=== PATIENT | female | born 1955 | race Caucasian/White ===

== ENCOUNTER → 2022-10-29 20:59 | Outpatient (CLI) | payer MEDICARE, SELFPAY ==
[2022-10-29 19:07] LABS: Basophils # 0.1 K/mm3 (0-0.2); Basophils % 0.8 % (0.1-2.0); Eosinophils % 0.5 % (0.1-12.0); Lymphocytes # 2.3 K/mm3 (0.7-4.5); Lymphocytes % 25.9 % (10-50); Mean Corpuscular HGB Conc 32.6 g/dL (31.8-35.4); Mean Corpuscular Hemoglobin 30.7 pg (27.0-31.2); Mean Corpuscular Volume 94.3 fl (81-99); Mean Platelet Volume 8.8 fl (7.4-10.4); Monocytes # 0.4 K/mm3 (0.1-1.0); Monocytes % 4.8 % (1.7-9.3); Neutrophils % 67.9 % (37.0-80.0); Platelet Count 303 K/mm3 (142-424); Red Blood Count 4.88 M/mm3 (4.20-5.40); Red Cell Distribution Width 13.2 % (11.5-17.5); White Blood Count 8.8 K/mm3 (4.8-10.8)
[2022-10-29 20:36] LABS: Alanine Aminotransferase 22 U/L (12-78); Albumin Level 4.4 g/dl (3.5-5.0); Albumin/Globulin Ratio 1.8 (1.1-1.8); Alkaline Phosphatase 83 U/L (38-126); Anion Gap 16.2 mEq/L (5-15); Aspartate Amino Transferase 28 U/L (14-36); Bilirubin,Total 0.5 mg/dl (0.2-1.3); Blood Urea Nitrogen 16 mg/dl (7-17); Calcium 9.5 mg/dl (8.4-10.2); Carbon Dioxide 26 mmol/L (22.0-30.0); Chloride 103 mmol/L (98-107); Chol/HDL Ratio 5.9 (1-3.5); Cholesterol 299 mg/dl (140-200); Estimated Glomerular Filt Rate 63 ml/min (>60); GFR (African American) 76 ML/MIN (>60); Globulin 2.4 g/dL (1.3-3.2); Glucose 81 mg/dl (74-100); HDL Cholesterol 51 mg/dl (40-60); Potassium 4.2 mmoL/L (3.5-5.1); Sodium 141 mmol/L (136-145); Total Protein,Serum 6.8 g/dl (6.3-8.2); Triglycerides 197 mg/dl (30-150); VLDL Cholesterol 39 mg/dL (0-40)
[2022-10-29 20:48] LABS: Direct LDL Cholesterol 190.72 mg/dL (100-129)
[2022-10-29 20:52] LABS: 25-OH Vitamin D, Total 24.9 ng/mL (30-100)
[2022-10-29 21:07] LABS: Thyroid Stimulating Hormone 3.05 uIU/mL (0.465-4.68)
[2022-10-29 21:27] LABS: Vitamin B12 330 pg/mL (239-931)
== END ==
PROVIDERS: PCP Family Medicine; Visit Provider Family Medicine
DX: I10 Essential (primary) hypertension (principal); R53.83 Other fatigue; E55.9 Vitamin D deficiency, unspecified; E53.9 Vitamin B deficiency, unspecified; M54.9 Dorsalgia, unspecified
CPT/HCPCS: 80053; 80061; 82306; 82607; 84443; 85025

== ENCOUNTER 2023-10-15 15:12 | Outpatient (CLI) | payer MEDICARE, OTHER, SELFPAY | END 2023-10-15 23:59 | disposition home or self-care (01) | LOC: LAB.DROPOF 10-18 15:13 | PROVIDERS: PCP Family Medicine; Visit Provider Family Medicine | DX: N39.0 Urinary tract infection, site not specified (principal); B96.29 Other Escherichia coli [E. coli] as the cause of diseases classified elsewhere | CPT/HCPCS: 87086; 87088; 87186 ==

== ENCOUNTER 2023-12-10 12:24 | Outpatient (CLI) | payer MEDICARE, OTHER, SELFPAY ==
[2023-12-10 18:29] LABS: Basophils # 0.1 K/mm3 (0-0.2); Basophils % 0.7 % (0.1-2.0); Eosinophils % 0.2 % (0.1-12.0); Hematocrit 38.3 % (37.0-47.0); Hemoglobin 14.7 g/dL (12.2-16.2); Lymphocytes # 1.4 K/mm3 (0.7-4.5); Mean Corpuscular HGB Conc 38.4 g/dL (31.8-35.4); Mean Corpuscular Hemoglobin 37.4 pg (27.0-31.2); Mean Corpuscular Volume 97.2 fl (81-99); Mean Platelet Volume 8.8 fl (7.4-10.4); Monocytes # 0.2 K/mm3 (0.1-1.0); Monocytes % 2.6 % (1.7-9.3); Neutrophils # 7.1 K/mm3 (1.8-7.8); Neutrophils % 80.6 % (37.0-80.0); Platelet Count 276 K/mm3 (142-424); Red Blood Count 3.94 M/mm3 (4.20-5.40); Red Cell Distribution Width 13.6 % (11.5-17.5); White Blood Count 8.8 K/mm3 (4.8-10.8)
[2023-12-10 19:09] LABS: Alanine Aminotransferase 21 U/L (12-78); Albumin Level 4.5 g/dl (3.5-5.0); Albumin/Globulin Ratio 1.7 (1.1-1.8); Alkaline Phosphatase 75 U/L (38-126); Anion Gap 8.8 mEq/L (5-15); Aspartate Amino Transferase 26 U/L (14-36); Bilirubin,Total 0.6 mg/dl (0.2-1.3); Blood Urea Nitrogen 20 mg/dl (7-17); Calcium 9.9 mg/dl (8.4-10.2); Carbon Dioxide 27 mmol/L (22.0-30.0); Chloride 106 mmol/L (98-107); Chol/HDL Ratio 5.2 (1-3.5); Cholesterol 300 mg/dl (140-200); Estimated Glomerular Filt Rate 62 ml/min (>60); GFR (African American) 76 ML/MIN (>60); Globulin 2.6 g/dL (1.3-3.2); Glucose 108 mg/dl (74-100); HDL Cholesterol 58 mg/dl (40-60); Potassium 4.8 mmoL/L (3.5-5.1); Sodium 137 mmol/L (136-145); Total Protein,Serum 7.1 g/dl (6.3-8.2); Triglycerides 186 mg/dl (30-150); VLDL Cholesterol 37 mg/dL (0-40)
[2023-12-10 19:20] LABS: Direct LDL Cholesterol 192.32 mg/dL (100-129); Intact Parathyroid Hormone 130.1 pg/mL (7.5-53.5)
[2023-12-10 19:39] LABS: Thyroid Stimulating Hormone 1.59 uIU/mL (0.465-4.68)
== END 2023-12-10 23:59 | disposition home or self-care (01) ==
LOC: LAB.DROPOF 12-13 12:25
PROVIDERS: PCP Family Medicine; Visit Provider Family Medicine
DX: I10 Essential (primary) hypertension (principal); Z87.891 Personal history of nicotine dependence
CPT/HCPCS: 80053; 80061; 83970; 84443; 85025

== ENCOUNTER 2025-01-10 10:40 | Outpatient (CLI) | payer MEDICARE, OTHER, SELFPAY ==
[2025-01-10 18:53] LABS: Alanine Aminotransferase 25 U/L (12-78); Albumin Level 4.5 g/dl (3.5-5.0); Albumin/Globulin Ratio 2.0 (1.1-1.8); Alkaline Phosphatase 78 U/L (38-126); Anion Gap 10.6 mEq/L (5-15); Aspartate Amino Transferase 30 U/L (14-36); Bilirubin,Total 0.6 mg/dl (0.2-1.3); Blood Urea Nitrogen 14 mg/dl (7-17); Calcium 9.9 mg/dl (8.4-10.2); Carbon Dioxide 28 mmol/L (22.0-30.0); Chloride 103 mmol/L (98-107); Cholesterol 297 mg/dl (140-200); Creatinine,Serum 1.00 mg/dl (0.52-1.04); Estimated Glomerular Filt Rate 55 ml/min (>60); GFR (African American) 67 ML/MIN (>60); Globulin 2.3 g/dL (1.3-3.2); Glucose 97 mg/dl (74-100); HDL Cholesterol 54 mg/dl (40-60); Potassium 4.6 mmoL/L (3.5-5.1); Sodium 137 mmol/L (136-145); Total Protein,Serum 6.8 g/dl (6.3-8.2); Triglycerides 200 mg/dl (30-150)
== END 2025-01-10 23:59 | disposition home or self-care (01) ==
LOC: LAB.DROPOF 01-12 10:41
PROVIDERS: PCP Family Medicine; Visit Provider Family Medicine
DX: I10 Essential (primary) hypertension (principal); R79.89 Other specified abnormal findings of blood chemistry
CPT/HCPCS: 80053; 80061; 83970

== ENCOUNTER 2025-02-15 12:13 | Outpatient (CLI) | payer MEDICARE, OTHER, SELFPAY ==
--- OUTSIDE RECORDS SUMMARY | 2025-02-15 12:17 | XMS_ITS | Encounter Summary ---
Author Organization Healthcare Address [address] [place] [address] Care Team Providers Care Program Professional Name Role Phone Rios Kelly MD Primary Care Provider [phone] Encounter Details Date Type Department Care Team ([facility] st Contact Info) Description 10/04/2023 Orders Only External Location [address] [place] [address] Provider, External Social History Tobacco Use Types Packs/Day Years Used Date Smoking Tobacco: Never Assessed Comments Unknown Sex and Gender Information Value Date Recorded Sex Assigned at Not on file Legal Sex Female 2:12 PM EDT Gender Identity Not on file Sexual Orientation Not on file documented as of this encounter Plan of Treatment Not on file documented as of this encounter Procedures Procedure Name Priority Date/Time Associated Diagnosis Comments CT NEURO OUTSIDE IMAGES 10/04/2023 11:17 AM EDT documented in this encounter Results * CT NEURO OUTSIDE IMAGES (10/04/2023 11:17 AM EDT) Anatomical Region Laterality Modality Computed Tomogra phy 10/04/2023 11:1 7 AM EDT us External Provider IMG CT PROCEDURES Final Result documented in this encounter Visit Diagnoses Not on filedocumented in this encounter Care Teams Program Professional Relationship Specialty Start Date End Date Rios Kelly MD [address] [place] [address] PCP - General 12/21/23 documented as of this encounter
--- OUTSIDE RECORDS SUMMARY | 2025-02-15 12:17 | XMS_ITS | Clinical Summary ---
Author Organization [facility] Address [address] [facility] [place] [address] Phone Care Team Providers Care Crew Car Driver Name Role Phone Radha Urbina MD Primary Care Provider [phone] Kenneth Rutherford MD Unavailable Allergies Active Allergy Reactions Criticality Noted Date Comments Nitroglycerin Anaphylaxis,Other (S ee Comments) High 12/20/2022 Pt reports last time he BP dropped and went out. Nitroglyn Other (See Comments) 12/20/2022 Pt reports last time he BP dropped and went out. Medications * This document contains information received from the source organization and may not represent a complete record from that organization. albuterol (PROVENTIL HFA;VENTOLIN HFA) 90 mcg/actuation Inhl HFA Aerosol Inhaler Inhale 2 Puffs into the lungs every 6 hours as needed for Wheezing. Active nebivoloL (BYSTOLIC) 10 mg Oral Tablet TAKE ONE (1) TABLET BY MOUTH DAILY 11/30/2022 Active BREO ELLIPTA 200-25 mcg/dose Inhl Disk with Device Inhale 1 Puff into the lungs daily. 01/19/2024 Active amLODIPine-hanh zepril (LOTREL) 10-40 mg Oral Capsule Take 1 Capsule by mouth daily. 02/01/2024 Active famotidine (PEPCID) 40 mg Oral Tablet Take 40 mg by mouth 2 times daily. 02/01/2024 Active tiZANidine (ZANAFLEX) 4 mg Oral Tablet Take 4 mg by mouth as needed for Muscle spasms. 08/23/2023 Active Active Problems Problem Noted Date Diagnosed Date Primary hypertension 02/09/2024 Mixed hyperlipidemia 02/09/2024 Pericardial effusion 02/09/2024 Tobacco use 02/09/2024 Vaginal vault prolapse after hysterectomy 2021 Mixed incontinence 08/21/2021 Resolved Problems Problem Noted Date Diagnosed Date Resolved Date ASHD (arteriosclerotic heart disease) 02/09/2024 02/09/2024 Surgical History Surgery Date Site/Laterality Comments HYSTERECTOMY 1995 SINUS SURGERY 1999 Medical History Medical History Date Comments GERD (gastroesophageal reflux disease) 3 Mixed incontinence 08/21/2021 Primary hypertension 02/09/2024 Social History Tobacco Use Types Packs/Day Years Used Date Smoking Tobacco: Former Cigarettes 1.5 50.7 S tarted: 1974 Smokeless Tobacco: Never Tobacco Cessation:Counseling Given: Not Answered Alcohol Use Standard Drinks/Week Comments No 0 (1 standard drink = 0.6 oz pur e alcohol) Sexually Active Control Partners Comments Yes Male Comments No Sex and Gender Information Value Date Recorded Sex Assigned at Not on file Legal Sex Female 6:56 AM EDT Gender Identity Not on file Sexual Orientation Not on file Obstetrics History Para Term AB IAB SAB Ectopic Multiple Livin g Live Births 3 3 0 3 3 Date Outcome GA Total Labor Labor/2nd/3rd Weight Sex Type Anes PTL Irena A1 A5 Name Clin 1972 Para F Vag-S pont Other Living 1973 Para M Vag-S pont Other Living 1974 Para M Vag-S pont None Living Last Filed Vital Signs Vital Sign Reading Time Taken Comments Blood Pressure 126/72 02/09/2024 1:58 PM EDT Pulse 53 02/09/2024 1:58 PM EDT Temperature 36.6 C (97.8 F) 09/30/2023 1:06 PM EDT Respiratory Rate 19 12/20/2022 6:30 PM EDT Oxygen Saturation 97% 02/09/2024 1:58 PM EDT Inhaled Oxygen Concentration - - Weight 90.3 kg (199 lb) 02/09/2024 1:58 PM EDT Height 164.5 cm (5' 4.75 ) 02/09/2024 1:58 PM ED T Body Mass Index 33.37 02/09/2024 1:58 PM EDT Plan of Treatment Health Maintenance Due Date Last Done Comments Wellness Exam Medicare 02/12/1958 Hepatitis C Screening 02/12/1974 DTaP/TDaP/Td (1 - Tdap) 02/12/1975 Colonoscopy 02/12/2001 FIT 02/12/2001 Sigmoidoscopy 02/12/2001 Virtual Colonography 02/12/2001 Pneumococcal Vaccine 50+ (1 of 1 - PCV) 02/12/2006 Zoster (1 of 2) 02/12/2006 Bone Density Screening 02/12/2021 Breast Cancer Screening 03/15/2022 03/15/20 20, 03/15/2020, 08/18/2011, Additional history exists Cologuard 09/25/2024 09/25/2021, 09/25/2021 Colon Cancer Screening 09/25/2024 COVID-19 Vaccine ( season) 2025 Influenza Vaccine (#1) 2025 Low Dose Lung Cancer Screening 09/01/2025 09/01/2024, 10/18/2013 Hepatitis B Vaccine Aged Out No longe r eligible based on patient's age to complete this topic Meningococcal B Vaccine Aged Out No l onger eligible based on patient's age to complete this topic Procedures Procedure Name Priority Date/Time Associated Diagnosis Comments CT LUNG CANCER SCREENING LOW DOSE Routine 09/01/2024 11:35 AM EDT Primary hypertension Mixed hyperlipidemia Pericardial effusion Tobacco use Personal history of nicotine dependence COLOGUARD Routine 09/25/2021 8:30 AM EDT Special screening for malignant neoplasms, colon Screening for malignant neoplasm of the rectum MM MAMMO DIGITAL ANNE SCREEN BILAT Routine 03/15/2020 11:09 AM EDT Encounter for screening mammogram for malignant neoplasm of breast from Last 3 Months or Most Recently Relevant to Health Maintenance Results * CT LUNG CANCER SCREENING LOW DOSE (09/01/2024 11:35 AM EDT) Anatomical Region Laterality Modality Lung Computed Tomogra phy 09/01/2024 11:3 5 AM EDT Impressions 09/01/2024 11:47 AM EDT Unremarkable low-dose screening chest CT. RECOMMENDATION: Low Dose CT - 1 Yr A summary letter communicating these results will be mailed to the patient's address of record. - Note: Radiology results need to be interpreted within a comprehensive clinical context. If you have questions about the radiology report, please contact the office of the ordering clinician. [email or web address] Narrative 09/01/2024 11:[address] LUNG CANCER SCREENING LOW DOSE 09/01/2024 11:35 AM CLINICAL HISTORY: Asymptomatic patient meeting NCCN high risk criteria for lung screening. X51-Ycqmhugac (primary) dlwizjfgdket-NKB-32-CM E78.2-Mixed mdiuekatlvablr-EBO-93-CM I31.39-Other pericardial effusion (noninflammatory)-ICD-10-CM Z72.0-Tobacco bcp-OWT-21-CM Z87.891-Personal history of nicotine ajvvvrfrdr-BPZ-84-CM. COMPARISON: None. PROCEDURE COMMENTS: Noncontrast, low-dose, multidetector CT chest per department protocol. Interactive 3-D postprocessing done by the reviewing physician on a [employer] workstation, using Maximum intensity projections (MIPS) and [employer] LUNG CAD for improved lesion detection. [place] images archived to PACS. Dose 1 : CT DLP Total : 53.98 mGycm DLP Spiral Max : 50.99 mGycm Maximum CTDI Vol : 1.35 mGy FINDINGS: No suspicious pulmonary nodule. No acute inflammatory process. Heart and mediastinum unremarkable. Coronary artery calcification: Mild. FOLLOW-UP CODE: Lung-RADS Category 1: Negative: No nodule or definitely benign nodule(s). Continued ANNUAL LOW-DOSE SCREENING CT SCAN (IMG [id number]) suggested if age <78. Lung-RADS Modifier N/A: No Modifier Needed Procedure Note Vane Garcia MD - 09/01/2024 CT LUNG CANCER SCREENING LOW DOSE 09/01/2024 11:35 AM CLINICAL HISTORY: Asymptomatic patient meeting NCCN high risk criteria forlung screening. A00-Mdskgswmg (primary) nnqsaqaodtsl-FBI-24-CM E78.2-Mixed wimsotfshngakd-GAI-30-CM I31.39-Other pericardial effusion (noninflammatory)-ICD-10-CM Z72.0-Tobacco kzn-FWJ-71-CM Z87.891-Personal history of nicotine yoxmyntjtj-GMA-02-CM. COMPARISON: None. PROCEDURE COMMENTS: Noncontrast, low-dose, multidetector CT chest perdepartment protocol. Interactive 3-D postprocessing done by the reviewing physicianon a [employer] workstation, using Maximum intensity projections (MIPS) and [employer]UNG CAD for improved lesion detection. [place] images archived to PACS. Dose 1 : CT DLP Total : 53.98 mGycm DLP Spiral Max : 50.99 mGycm Maximum CTDI Vol : 1.35 mGy FINDINGS: No suspicious pulmonary nodule. No acute inflammatory process. Heart and mediastinum unremarkable. Coronary artery calcification: Mild. FOLLOW-UP CODE: Lung-RADS Category 1: Negative: No nodule or definitelybenign nodule(s). Continued ANNUAL LOW-DOSE SCREENING CT SCAN ([facility] [id number])suggested if age <78. Lung-RADS Modifier N/A: No Modifier Needed IMPRESSION: Unremarkable low-dose screening chest CT. RECOMMENDATION: Low Dose CT - 1 Yr A summary letter communicating these results will be mailed to thepatient's address of record. - Note: Radiology results need to be interpreted within a comprehensiveclinical context. If you have questions about the radiology report, please contactthe office of the ordering clinician. [email or web address] August Lacey INJECTION MOLDING PROCESS TECHNICIAN G CT ORDERABLES Final Res ult * COLOGUARD (09/25/2021 8:30 AM EDT) COLOGUARD CLINICAL REPORT Negative Negative [facility] Comment: NEGATIVE TEST RESULT. A negative Cologuard result indicates a low likelihood that a colorectal cancer (CRC) or advanced adenoma (adenomatous polyps with more advanced pre-malignant features) is present. The chance that a person with a negative Cologuard test has a colorectal cancer is less than 1 in 1500 (negative predictive value >99.9%) or has an advanced adenoma is less than 5.3% (negative predictive value 94.7%). These data are based on a prospective cross-sectional study of 10,000 individuals at average risk for colorectal cancer who were screened with both Cologuard and colonoscopy. (Oren Huntley al, N Engl J Med 2014;370(14):4478-6178) The normal value (reference range) for this assay is negative. COLOGUARD RE-SCREENING RECOMMENDATION: Periodic colorectal cancer screening is an important part of preventive healthcare for asymptomatic individuals at average risk for colorectal cancer. Following a negative Cologuard result, the [place] [employer] and U.S. Multi-Society Task Force screening guidelines recommend a Cologuard re-screening interval of 3 years. References: [place] [employer] Guideline for Colorectal Cancer Screening: https://www.cancer.org/cancer/lntlg-ldtfnv-frqyug/zlnjmhyhh-lonylneyd-qrrqldq/ac s-rec ommendations.html.; Manuel DK, Hakeem ALDRIDGE, Elder MehtaK, Colorectal Cancer Screening: Recommendations for Physicians and Patients from the U.S. Multi-Society Task Force on Colorectal Cancer Screening , Am J Gastroenterology 2017; 112:9654-3348. TEST DESCRIPTION: Composite algorithmic analysis of stool DNA-biomarkers with hemoglobin immunoassay. Quantitative values of individual biomarkers are not reportable and are not associated with individual biomarker result reference ranges. Cologuard is intended for colorectal cancer screening of adults of either sex, 45 years or older, who are at average-risk for colorectal cancer (CRC). Cologuard has been approved for use by the U.S. FDA. The performance of Cologuard was established in a cross sectional study of average-risk adults aged 50-84. Cologuard performance in patients ages 45 to 49 years was estimated by sub-group analysis of near-age groups. Colonoscopies performed for a positive result may find as the most clinically significant lesion: colorectal cancer [4.0%], advanced adenoma (including sessile serrated polyps greater than or equal to 1cm diameter) [20%] or non- advanced adenoma [31%]; or no colorectal neoplasia [45%]. These estimates are derived from a prospective cross-sectional screening study of 10,000 individuals at average risk for colorectal cancer who were screened with both Cologuard and colonoscopy. (Oren Huntley al, N Engl J Med 2014;370(14):0521-1352.) Cologuard may produce a false negative or false positive result (no colorectal cancer or precancerous polyp present at colonoscopy follow up). A negative Cologuard test result does not guarantee the absence of CRC or advanced adenoma (pre-cancer). The current Cologuard screening interval is every 3 years. ([place] [employer] and U.S. Multi-Society Task Force). Cologuard performance data in a 10,000 patient pivotal study using colonoscopy as the reference method can be accessed at the following location: www.[employer]/results. Additional description of the Cologuard test process, warnings and precautions can be found at www.cologuard.com. Stool 09/25/2021 8:30 AM EDT 09/27/2021 7:24 PM EDT Elodia Davies MD [employer] - [facility] Final [facility], [employer] [address] [place] [address], [facility] [employer] [address] [place] [address] * MM MAMMO DIGITAL ANNE SCREEN BILAT (03/15/2020 11:09 AM EDT) Anatomical Region Laterality Modality Breast Bilateral Mammography 03/18/2020 9:21 AM EDT Impressions 03/18/2020 9:21 AM EDT Negative (KBQ-Uyfxqtpd-3) ~ RECOMMENDATION: Routine screening mammogram in 1 year. ~ DISCLAIMER * Any patient with a palpable abnormality, unexplained by breast imaging, should be managed on clinical basis by the attending physician. * Breast imaging has a false negative rate of 15%. * The patient was notified by mail of the results of this examination. *The patient's information was entered into a reminder system with a target due date for the next mammogram, in accordance with the [place] [employer] and the Society of Breast Imaging recommendations. Narrative 03/18/2020 9:21 AM EDT Procedure:MM MAMMO DIGITAL ANNE SCREEN BILAT ~ Reason for exam: screening, asymptomatic. Z12.31-Encounter for screening mammogram for malignant neoplasm of xmkmqk-MCR-32-CM ~ MM MAMMO DIGITAL ANNE SCREEN BILAT Bilateral CC and MLO view(s) were taken. There are scattered fibroglandular densities. Prior study comparison: Compared with prior studies the most recent being 08/18/11, 07/19/07 No mammographic evidence of malignancy. ~ Procedure Note Alina Camarillo MD - 03/18/2020 Procedure:MM MAMMO DIGITAL ANNE SCREEN BILAT ~ Reason for exam: screening, asymptomatic. Z12.31-Encounter for screening mammogram for malignant neoplasm of sawaih-XSC-71-CM ~ MM MAMMO DIGITAL ANNE SCREEN BILAT Bilateral CC and MLO view(s) were taken. There are scattered fibroglandular densities. Prior study comparison: Compared with prior studies the most recentbeing 08/18/11, 07/19/07 No mammographic evidence of malignancy. ~ IMPRESSION: Negative (GTG-Rbolyhmr-7) ~ RECOMMENDATION: Routine screening mammogram in 1 year. ~ DISCLAIMER * Any patient with a palpable abnormality, unexplained by breast imaging, should be managed on clinical basis by the attending physician. * Breast imaging has a false negative rate of 15%. * The patient was notified by mail of the results of this examination. *The patient's information was entered into a reminder system with atarget due date for the next mammogram, in accordance with the [place] [employer] and the Society of Breast Imaging recommendations. Rebecca Lowe NP [facility] MAMMOGRAPHY ORDERABLES Lyudmila l Result from Last 3 Months or Most Recently Relevant to Health Maintenance Insurance [place]ICARE [place] PART A AND B [employer] [place] PART [place] [employer] MEDICARE [place] PART A AND B [employer] Care Teams Crew Car Driver Relationship Specialty Start Date End Date Radha Urbina MD [address] [place] [address] PCP - General Family Medicine 07/31/11 Kenneth Rutherford MD [address] [place] [phone] Otolaryngology 09/22/23
--- OUTSIDE RECORDS SUMMARY | 2025-02-15 12:17 | XMS_ITS | Clinical Summary ---
Author Organization Healthcare Address [address] [place] [address] Care Team Providers Care Utility Sales Representative Name Role Phone Rios Kelly MD Primary Care Provider [phone] Allergies Active Allergy Reactions Criticality Noted Date Comments Nitroglycerin Anaphylaxis,Other - please document in the comment field High 12/20/2022 Pt reports last time he BP dropped and went out. Medications acetaminophen (Tylenol) 500 MG tablet Take 2 tablets (1,000 mg) by mouth every 8 (eight) hours. 4 Active albuterol 108 (90 Base) MCG/ACT inhaler TWO (2) PUFF INHALED EVERY 4-6 HOURS NEEDED FOR SHORTNESS OF BREATH OR WHEEZING Active amLODIPine-hanh zepril (Lotrel) 10-40 MG capsule TAKE 1 CAPSULE BY MOUTH EVERY DAY IN PLACE OF [place] 4 Active tiZANidine (Zanaflex) 4 MG tablet TAKE 1 TABLET BY MOUTH THREE (3) TIMES DAILY Active famotidine (Pepcid) 40 MG tablet Take 1 tablet (40 mg) by mouth 2 (two) times a day. 4 Active Social History Tobacco Use Types Packs/Day Years Used Date Smoking Tobacco: Never Smokeless Tobacco: Never Alcohol Use Standard Drinks/Week Comments Never 0 (1 standard drink = 0.6 oz pur e alcohol) Comments Unknown Sex and Gender Information Value Date Recorded Sex Assigned at Not on file Legal Sex Female 2:12 PM EDT Gender Identity Not on file Sexual Orientation Not on file Last Filed Vital Signs Vital Sign Reading Time Taken Comments Blood Pressure 114/64 02/07/2024 10:41 AM EDT Pulse 65 02/07/2024 10:41 AM EDT Temperature - - Respiratory Rate - - Oxygen Saturation - - Inhaled Oxygen Concentration - - Weight 88.9 kg (196 lb) 02/07/2024 10:41 AM EDT Height 167.6 cm (5' 6 ) 02/07/2024 10:41 AM EDT Body Mass Index 31.64 02/07/2024 10:41 AM EDT Plan of Treatment Health Maintenance Due Date Last Done Comments [facility]-Bone Density Scan 1955 [facility]-Depression Screening 1955 [facility]-Hepatitis C Screening 1955 [facility]-Medicare Annual Wellness (AWV) 1955 [facility]-/Child/Adol SDOH Screenings 1955 [facility]- SDOH Screenings 02/12/1974 [facility]-Adult SDOH Screenings 02/12/1974 [facility]-DTaP,Tdap,and Td Vaccine s (1 - Tdap) 02/12/1975 CT Colonography 02/12/2001 Colonoscopy 02/12/2001 FIT-DNA 02/12/2001 FIT 02/12/2001 FOBT 02/12/2001 Sigmoidoscopy 02/12/2001 [facility]-Colorectal Cancer Screening 02/12/2001 [facility]-Pneumococcal Vaccine: 50 + Years (1 of 1 - PCV) 02/12/2006 [facility]-Zoster Vaccines (1 of 2) 02/12/2006 [facility]-Breast Cancer Screening 03/15/202202/28, 03/15/2020, 08/18/2011 HUJ-XLULC-13 Vaccine ( season) 2025 [facility]-Influenza Vaccine (#1) 2025 [facility]-RSV Vaccine: 60+ Years o r (1 - 1-dose 75+ series) 02/12/2031 [facility]-Obesity Intervention Completed 02/07/2024 HPV Vaccines Aged Out No longer eligi ble based on patient's age to complete this topic [facility]-HIB Vaccines Aged Out No longer e ligible based on patient's age to complete this topic [facility]-Hepatitis A Vaccines Aged Out No longer eligible based on patient's age to complete this topic [facility]-IPV Vaccines Aged Out No longer e ligible based on patient's age to complete this topic [facility]-Rotavirus Vaccines Aged Out No lo nger eligible based on patient's age to complete this topic Insurance MEDICARE [facility] [facility] Care Teams Utility Sales Representative Relationship Specialty Start Date End Date Rios Kelly MD [facility] [place] [address] PCP - General 12/21/23
--- OUTSIDE RECORDS SUMMARY | 2025-02-15 12:17 | XMS_ITS | Encounter Summary ---
Author Organization [facility] Address [address] [place] [id number] Care Team Providers Care Senior Electrical Estimator Name Role Phone Rios Kelly MD Primary Care Provider [phone] Reason for Referral * Consultation (Routine) - Closed Specialty Diagnoses / Procedures Referred By Contac t Referred To Contact Otolaryngology Diagnoses Hyperparathyroidism, unspecified (CMS/HCC) Rios Kelly MD [address] [place] [address] Phone: tel: fax: Referral ID Status Reason Start Date Expiration Date V isits Requested Visits Authorized [id number] Closed Specialty Services Required 12/20/2023 06/20/2025 1 1 Encounter Details Date Type Department Care Team (Late st Contact Info) Description 12/20/2023 Community [facility] [address] [place] [address] Rios Kelly MD [address] [place] [address] Hyperparathyroidism, unspecified (CMS/HCC) (Primary Dx) Social History Tobacco Use Types Packs/Day Years Used Date Smoking Tobacco: Never Assessed Comments Unknown Sex and Gender Information Value Date Recorded Sex Assigned at Not on file Legal Sex Female 2:12 PM EDT Gender Identity Not on file Sexual Orientation Not on file documented as of this encounter Plan of Treatment Scheduled Referrals Name Type Priority Associated Diagnoses Orde r Schedule Ambulatory Referral to ENT Outpatient Referral Routine Hyperparathyroidism, unspecified (CMS/HCC) Expected: 12/20/2023 (Approximate), Expires: 06/21/2025 documented as of this encounter Visit Diagnoses Diagnosis Hyperparathyroidism, unspecified (CMS/HCC)- Primary Hyperparathyroidism, unspecified documented in this encounter Care Teams Senior Electrical Estimator Relationship Specialty Start Date End Date Rios Kelly MD [address] [place] [address] PCP - General 12/21/23 documented as of this encounter
--- OUTSIDE RECORDS SUMMARY | 2025-02-15 12:17 | XMS_ITS | Clinical Summary ---
Author Organization [facility] Address [facility] [place] [address] Care Team Providers Care [employer] Name Role Phone Kenneth Rutherford MD Unavailable Rios Kelly MD Primary Care Provider [phone] Source Comments This information has been disclosed to you from confidential records protectedfrom disclosure by state law. You shall make no further disclosure of thisinformation without the specific, written, and informed release of theindividual to whom it pertains, or as otherwise permitted by law. A generalauthorization for the release of medical or other information is not sufficientfor the purposes of therelease of HIV test results or diagnoses. [id number] Health Allergies Active Allergy Reactions Criticality Noted Date Comments Nitroglycerin Anaphylaxis,Other (S ee Comments) High 12/20/2022 Pt reports last time he BP dropped and went out. Medications PRALUENT PEN 75 mg/mL Inject subcutaneously. Every two weeks 3 Active DEXILANT 60 mg capsule Take 1 capsule every day by oral route for 56 days. Active escitalopram oxalate (LEXAPRO) 5 MG tablet Take 1 tablet (5 mg total) by mouth daily. 4 Active furosemide (LASIX) 40 MG tablet As needed for excess fluid in ears or ankle. 3 Active nebivoloL (BYSTOLIC) 10 MG tablet TAKE ONE (1) TABLET BY MOUTH DAILY 3 Active tiZANidine (ZANAFLEX) 4 MG tablet TAKE 1 TABLET BY MOUTH THREE (3) TIMES DAILY 4 Active PROAIR HFA 90 mcg/actuation inhaler INHALE TWO (2) PUFF(S) EVERY FOUR (4) HOURS BY INHALATION ROUTE. Active ergocalciferol (ERGOCALCIFEROL ) 1,250 mcg (50,000 unit) capsule TAKE ONE (1) CAPSULE BY MOUTH ONCE A WEEK. 4 Active NON FORMULARY Amlodipine/Besy latebenzipril -10-40mg. Started on 10/15/23. One time a day- had not gotten filled yet. Active acetaminophen (TYLENOL) 500 MG tablet Take 2 tablets (1,000 mg total) by mouth every 8 hours. 60 tablet 4 Active Active Problems No known active problems Social History Tobacco Use Types Packs/Day Years Used Date Smoking Tobacco: Former Cigarettes Q uit: 2016 Smokeless Tobacco: Never Alcohol Use Standard Drinks/Week Comments Not Currently 0 (1 standard drink = 0.6 oz pur e alcohol) PHQ-2 Answer Date Recorded PHQ-2 Total Score 0 10/13/2023 Yearly Questionnaire Answer Date Record ed Do you need any assistance w ith obtaining housing, meals, medication, transportation or medical equipment? No 10/12 Assistance needed for: Not on file 4 Yearly Questionnaire Answer Date Record ed Do you need any assistance w ith obtaining housing, meals, medication, transportation or medical equipment? No 10/12 Assistance needed for: Not on file 4 Yearly Questionnaire Answer Date Record ed Do you need any assistance w ith obtaining housing, meals, medication, transportation or medical equipment? No 10/12 Assistance needed for: Not on file 4 Comments Unknown Sex and Gender Information Value Date Recorded Sex Assigned at Female 11/15/2023 8:29 PM EDT Legal Sex Female 2:48 PM EDT Gender Identity Female 11/15/2023 8:29 PM EDT Sexual Orientation Straight 11/15/2023 8: 29 PM EDT Last Filed Vital Signs Vital Sign Reading Time Taken Comments Blood Pressure 137/76 11/24/2023 12:49 PM EDT Pulse 58 11/24/2023 12:49 PM EDT Temperature 36.3 C (97.4 F) 11/24/2023 12:49 PM EDT Respiratory Rate 16 11/24/2023 12:49 PM EDT Oxygen Saturation 95% 11/24/2023 12:49 PM EDT Inhaled Oxygen Concentration 95% 11/24/2023 1 2:49 PM EDT Weight 92.1 kg (203 lb) 11/24/2023 12:49 PM EDT Height 167.6 cm (5' 6 ) 11/24/2023 12:49 PM EDT Body Mass Index 32.77 11/24/2023 12:49 PM EDT Plan of Treatment Health Maintenance Due Date Last Done Comments Abnormal Colonoscopy Follow Up 1955 Diabetes Screening 1955 Hepatitis C Screening (MyChart) 1955 Alcohol Misuse Screening 02/12/1974 Immunization: DTaP/Tdap/Td (1 - Tdap) 02/12/1975 Mammogram (MyChart) 1996 Cologuard (FIT-DNA) 02/12/2001 Colonoscopy 02/12/2001 Colorectal Cancer Screening (MyChart) 02/12/2001 Stool Testing (gFOBT) 02/12/2001 Immunization: Pneumococcal (1 of 1 - PCV) 02/12/2006 Immunization: Zoster (1 of 2) 02/12/2006 Lung Cancer Screening 02/12/2006 Osteoporosis Screening (DXA Scan) 02/12/2006 Depression Screening 10/12/2024 10/13/2023 Immunization: COVID-19 ( season) 2025 Immunization: Influenza (MyChart) (#1) 2025 Immunization: RSV (Adult) (1 - 1-dose 75+ series) 01/29 Insurance MEDICARE A AND B [employer] Care Teams [employer] Inspector Relationship Specialty Start Date End Date Rios Kelly MD [address] [place] [address] [place], [place] [id number] PCP - General Family Medicine 11/10/23 Kenneth Rutherford MD [address] [place] [address] Dr. Gambino [address] [place] [id number] Referring Provider Otolaryngology 10/12/23
[2025-02-15 12:38] LABS: Blood Urea Nitrogen 16 mg/dl (7-17); Creatinine,Serum 1.00 mg/dl (0.52-1.04); Estimated Glomerular Filt Rate 55 ml/min (>60); GFR (African American) 67 ML/MIN (>60)
--- NOTE | 2025-02-15 13:00 | CT_ITS ---
FINAL REPORT TECHNIQUE: Thin section axial CT with coronal reconstruction without IV contrast This study was performed with techniques to keep radiation doses as low as reasonably achievable, (ALARA). Individualized dose reduction techniques using automated exposure control or adjustment of mA and/or kV according to the patient''s size were employed. CLINICAL HISTORY: NECK PAIN, SINUS PRESSURE COMPARISON: None FINDINGS: CT SINUS: There is a small air-fluid level in the right sphenoid sinus consistent with sinusitis. There are postoperative changes of the bilateral maxillary sinuses and ethmoid air cells. The patient is post partial turbinectomies. 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 The defect measures up to 12 mm in size. IMPRESSION: 1. Right sphenoid sinusitis. 2. Postoperative changes as described. 3. Bony defect/dehiscence, with the left alveolar ridge communicating with the left maxillary sinus. Reviewed, Interpreted and Dictated by Tashi Chavez MD Transcribed by Vickie North Authenticated and . [facility]
--- NOTE | 2025-02-15 13:30 | CT_ITS ---
FINAL REPORT CLINICAL HISTORY: NECK PAIN, SINUS PRESSURE COMPARISON: None FINDINGS: CT NECK WITH CONTRAST TECHNIQUE: Axial CT with IV contrast administration. This study was performed with techniques to keep radiation doses as low as reasonably achievable, (ALARA). Individualized dose reduction techniques using automated exposure control or adjustment of mA and/or kV according to the patient's size were employed. FINDINGS: The salivary glands are normal in appearance. No cervical adenopathy is identified. There is mild effacement of the left piriform sinus without an obvious mass, which could represent secretions. The vocal cords are symmetric. The thyroid gland is unremarkable. There is mild diffuse degenerative changes of the cervical spine identified seen on limited views. There is no abscess. IMPRESSION: 1. No mass or inflammatory change. This study was performed using automated techniques to achieve radiation exposure as low as reasonably achievable Reviewed, Interpreted and Dictated by Tashi Chavez MD Transcribed by Vickie North Authenticated and [facility]
[2025-02-15] MEDS: SODIUM CHLORIDE 0.9% 10ML SYR (RAD ONLY) 10 ML IV (13:39)
[2025-02-15] MEDS: IOPAMIDOL-370 (76%);100ML BOTTLE 75 ML IV (13:39)
== END 2025-02-15 23:59 | disposition home or self-care (01) ==
LOC: RAD 12:15
PROVIDERS: PCP Family Medicine; Visit Provider Nurse Practitioner
DX: J32.3 Chronic sphenoidal sinusitis (principal); M89.8X8 Other specified disorders of bone, other site; M54.2 Cervicalgia; Z98.890 Other specified postprocedural states
CPT/HCPCS: 36415; 70486; 70491; 82565; 84520; Q9967